=== PATIENT | female | born 1950 | race African-American/Black ===

== ENCOUNTER 2018-08-14 14:48 | Emergency (ER) | payer OTHER ==
[~2018-08-14] VITALS: Ht 162.6 cm; Wt 73.0 kg
[2018-08-14 15:32] LABS: HEMATOCRIT 34.5 % (37.0-47.0); IMMATURE GRANULOCYTES 0.5 % (0.0-5.0); MEAN CELL VOLUME 103.9 fL CALC (80.0-100.0); MEAN CORPUSCULAR HGB 33.4 pG CALC (26.0-32.0); MEAN CORPUSCULAR HGB CONC 32.2 g/L CALC (32.0-36.0); NEUT# 3.11 thou/uL (2.00-7.15); RED BLOOD COUNT 3.32 mill/uL (4.20-5.60); RED CELL DISTRI WIDTH 13.1 % (11.5-15.5)
[2018-08-14 15:33] LABS: HEMOGLOBIN 11.1 g/dl (12.0-16.0)
[2018-08-14 15:52] LABS: CREATININE 1.5 mg/dL (0.5-1.0); POTASSIUM 3.7 mmol/l (3.5-5.1)
[2018-08-14 17:28] VITALS: BP 177/97
== END 2018-08-14 17:34 | disposition home or self-care (01) | DRG 605 ==
LOC: ED 14:48
PROVIDERS: Family Medicine
DX: S00.33XA Contusion of nose, initial encounter (principal); S60.212A Contusion of left wrist, initial encounter; S80.02XA Contusion of left knee, initial encounter; S80.01XA Contusion of right knee, initial encounter; W01.198A Fall on same level from slipping, tripping and stumbling with subsequent striking against other object, initial encounter; Y92.89 Other specified places as the place of occurrence of the external cause; Y99.0 Civilian activity done for income or pay

== ENCOUNTER 2019-05-16 | Emergency (ER) | payer OTHER ==
[2019-05-16 13:27] LABS: HEMATOCRIT 37.3 % (37.0-47.0); HEMOGLOBIN 12.2 g/dl (12.0-16.0); IMMATURE GRANULOCYTES 0.2 % (0.0-5.0); MEAN CELL VOLUME 103.3 fL CALC (80.0-100.0); MEAN CORPUSCULAR HGB 33.8 pG CALC (26.0-32.0); MEAN CORPUSCULAR HGB CONC 32.7 g/L CALC (32.0-36.0); NEUT# 2.82 thou/uL (2.00-7.15); RED BLOOD COUNT 3.61 mill/uL (4.20-5.60); RED CELL DISTRI WIDTH 13.3 % (11.5-15.5)
[2019-05-16 13:44] LABS: ACT PARTIAL THROMBO TIME 24.4 SECONDS (20.0-32.5); ALKALINE PHOSPHATASE 118 u/l (38-126); ANION GAP 11 (6-22 (CALC)); BILIRUBIN, TOTAL 0.4 mg/dL (0.0-1.4); BUN 31 mg/dL (8-23); BUN/CREATININE RATIO 21 (12-20 (CALC)); CARBON DIOXIDE 27 mmol/l (22-30); CHLORIDE 105 mmol/l (95-108); CREATININE 1.5 mg/dL (0.5-1.0); GFR 35 ML/MIN (>=60 (CALC)); GFR FOR AFR.AMER. 42 ML/MIN (>=60 (CALC)); POTASSIUM 3.8 mmol/l (3.5-5.1); PROTHROMBIN TIME 10.2 SECONDS (9.0-12.5); SGOT/AST 41 u/l (9-36); SODIUM 138 mmol/l (137-146); TOTAL PROTEIN 7.8 g/dL (6.3-8.2)
[2019-05-16] MEDS ORDERED: LISINOPRIL2.5 MG PO (14:11)
[2019-05-16] MEDS ORDERED: METOPROL TAR25 MG PO (14:12)
[2019-05-16] MEDS ORDERED: LEVOTHYROXIN50 MCG PO (14:12)
[2019-05-16] MEDS ORDERED: METFORMIN500 MG PO (14:12)
== END 2019-05-16 14:35 | disposition short-term general hospital (02) | DRG 66 ==
PROVIDERS: Family Medicine
DX: I63.9 Cerebral infarction, unspecified (principal); R47.81 Slurred speech; R26.89 Other abnormalities of gait and mobility; R29.810 Facial weakness; R29.702 NIHSS score 2

== ENCOUNTER 2020-12-11 07:23 | Day surgery (SDC) | payer MEDICARE ==
[~2020-12-11] VITALS: Ht 157.5 cm; Wt 61.2 kg
[~2020-12-11 07:23] MED LIST: ASPIRIN81 MG PO; CENTRUM ADULTS1 TAB PO; GLIPIZIDE ER5 MG PO; LEVOTHYROXIN50 MCG PO; LIPITOR40 M1 PO; LISINOPRIL2.5 MG PO; LISINOPRIL20 MG PO; METFORMIN HCL1000 MG PO; METFORMIN500 MG PO; METOPROL TAR25 MG PO; NIFEDIPINE60 MG PO
[2020-12-11 09:59] VITALS: BP 124/67
== END 2020-12-11 10:14 | disposition home or self-care (01) ==
LOC: ENDO 07:23 → ORM 08:45 → ENDO 08:45
PROVIDERS: ATTEND Surgery
PROC: 0DJD8ZZ Inspection of Lower Intestinal Tract, Via Natural or Artificial Opening Endoscopic (ICD-10-PCS; principal; 2020-12-11)
PROC: 0DB48ZX Excision of Esophagogastric Junction, Via Natural or Artificial Opening Endoscopic, Diagnostic (ICD-10-PCS; 2020-12-11)
PROC: 0DB78ZX Excision of Stomach, Pylorus, Via Natural or Artificial Opening Endoscopic, Diagnostic (ICD-10-PCS; 2020-12-11)
DX: D64.9 Anemia, unspecified (principal); K29.50 Unspecified chronic gastritis without bleeding; K20.90 Esophagitis, unspecified without bleeding; K44.9 Diaphragmatic hernia without obstruction or gangrene; I10 Essential (primary) hypertension; E11.9 Type 2 diabetes mellitus without complications; Z80.0 Family history of malignant neoplasm of digestive organs; Z79.4 Long term (current) use of insulin

== ENCOUNTER 2023-10-14 14:58 | Observation (INO) | payer MEDICARE ==
[2023-10-14] VITALS (7 sets, daily range): BP systolic 159–172; BP diastolic 76–91
[2023-10-14] MEDS ORDERED: ACETAMINOPHEN 325 MG/TAB PO PRN (17:15)
[2023-10-14] MEDS ORDERED: PANTOPRAZOLE SODIUM Sesquihydr 40 MG/TAB PO SCH (17:15)
[2023-10-14] MEDS ORDERED: DEXTROSE 250 ML IV PRN (17:15)
[2023-10-14] MEDS ORDERED: MAGNESIUM HYDROXIDE 30 ML UDC PO PRN (17:15)
[2023-10-14] MEDS ORDERED: hydrALAZINE HCL 20 MG/ML VIAL(1 ML) IV PRN (17:15)
[2023-10-14 18:34] LABS: HEMATOCRIT 23.3 % (37.0-47.0); RED BLOOD COUNT 2.97 mill/uL (4.20-5.60)
[2023-10-14 18:35] LABS: HEMOGLOBIN 6.2 g/dl (12.0-16.0); MEAN CELL VOLUME 78.5 fL CALC (80.0-100.0); MEAN CORPUSCULAR HGB 20.9 pG CALC (26.0-32.0); MEAN CORPUSCULAR HGB CONC 26.6 g/dL CAL (32.0-36.0)
[2023-10-14] MEDS ORDERED: SODIUM CHLORIDE 0.9% 500 ML IV ONE (18:35)
[2023-10-14] MEDS ORDERED: ATORVASTATIN CALCIUM 40 MG/TAB PO SCH (21:00)
[2023-10-14] MEDS ORDERED: INSULIN LISPRO 100 UNITS/ML ML SC SCH (21:00)
[2023-10-14] MEDS ORDERED: SODIUM CHLORIDE 0.9% 500 ML IV PRN (23:45)
[2023-10-15] VITALS (9 sets, daily range): BP systolic 157–188; BP diastolic 73–95
[2023-10-15 05:19] LABS: BASO% 0.5 % (0-3); EOS% 1.7 % (0-8); IMMATURE GRANULOCYTES 0.4 % (0.0-5.0); LYMPH% 29.1 % (15-41); MEAN CELL VOLUME 81.4 fL CALC (80.0-100.0); MEAN CORPUSCULAR HGB 25.4 pG CALC (26.0-32.0); MEAN CORPUSCULAR HGB CONC 31.2 g/dL CAL (32.0-36.0); MONO% 15.7 % (2-13); NEUT# 4.23 thou/uL (2.00-7.15); NEUT% 52.6 % (42-76); RED BLOOD COUNT 4.14 mill/uL (4.20-5.60); RED CELL DISTRI WIDTH 19.6 % (11.5-15.5)
[2023-10-15 05:29] LABS: HEMATOCRIT 33.7 % (37.0-47.0); HEMOGLOBIN 10.5 g/dl (12.0-16.0)
[2023-10-15 05:40] LABS: PROTHROMBIN TIME 9.8 SECONDS (9.0-12.5)
[2023-10-15 05:43] LABS: ALBUMIN 3.2 g/dL (3.2-5.0); CREATININE 1.7 mg/dL (0.5-1.0); MAGNESIUM 1.6 mg/dL (1.6-2.3); POTASSIUM 3.8 mmol/l (3.5-5.1); TOTAL PROTEIN 6.6 g/dL (6.3-8.2)
[2023-10-15 05:49] LABS: BILIRUBIN, TOTAL 0.8 mg/dL (0.02-1.3); CHOLESTEROL HDL RATIO 2.5 (<4.4 (CALC))
[2023-10-15] MEDS ORDERED: LEVOTHYROXINE SODIUM 75 MCG/TAB PO SCH (06:00)
[2023-10-15] MEDS ORDERED: NIFEdipine 60 MG TAB PO SCH (09:00)
[2023-10-15] MEDS ORDERED: NIFEdipine SR 30 MG/TAB PO SCH (09:00)
[2023-10-15] MEDS ORDERED: METOPROLOL TARTRATE 50 MG/TAB PO SCH (09:00)
[2023-10-15] MEDS ORDERED: LISINOPRIL 20 MG/TAB PO SCH (09:00)
== END 2023-10-15 12:45 | disposition home or self-care (01) ==
LOC: ED 14:58 → MS2 16:30 → EDSTATUS 10-17 14:58
PROVIDERS: ADMIT Student in an Organized Health Care Education/Training Program; ATTEND Student in an Organized Health Care Education/Training Program
PROC: 30233N1 Transfusion of Nonautologous Red Blood Cells into Peripheral Vein, Percutaneous Approach (ICD-10-PCS; principal; 2023-10-14)
PROC: 30233N1 Transfusion of Nonautologous Red Blood Cells into Peripheral Vein, Percutaneous Approach (ICD-10-PCS; 2023-10-14)
DX: D64.9 Anemia, unspecified (principal); I12.9 Hypertensive chronic kidney disease with stage 1 through stage 4 chronic kidney disease, or unspecified chronic kidney disease; E11.22 Type 2 diabetes mellitus with diabetic chronic kidney disease; N18.9 Chronic kidney disease, unspecified; K21.00 Gastro-esophageal reflux disease with esophagitis, without bleeding; Z79.84 Long term (current) use of oral hypoglycemic drugs
CPT/HCPCS: P9016